=== PATIENT | male | born 1950 | race Caucasian/White ===

== ENCOUNTER 2018-10-26 21:50 | Emergency (ER) | payer MEDICARE, OTHER ==
[~2018-10-26] VITALS: Ht 180.3 cm; Wt 80.3 kg
[~2018-10-26 21:50] MED LIST: AMLODIPINE BESYL5 MG PO; ANTIOXIDANT VI1 EACH PO; BACLOFEN10 MG PO; BACLOFEN20 MG PO; CENTRUM SILVER1 EAC2 PO; CYCLOBENZAPRINE10 MG PO; FUROSEMIDE20 MG PO; LISINOPRIL40 MG PO; METOPROLOL TART50 MG PO; POTASSIUM CHLO10 MEQ PO; REQUIP1 MG PO; SUPER B COMPLE150 MG PO; ULTRAM50 MG PO
== END 2018-10-26 23:20 | disposition home or self-care (01) ==
LOC: ED 21:50
PROC: 0HQ1XZZ Repair Face Skin, External Approach (ICD-10-PCS; principal; 2018-10-26)
DX: S01.81XA Laceration without foreign body of other part of head, initial encounter (principal); I10 Essential (primary) hypertension; F17.200 Nicotine dependence, unspecified, uncomplicated; Z90.49 Acquired absence of other specified parts of digestive tract; Z79.899 Other long term (current) drug therapy; Z23 Encounter for immunization; W19.XXXA Unspecified fall, initial encounter; W22.8XXA Striking against or struck by other objects, initial encounter
CPT/HCPCS: 12011; 90471; 90715; 99282-25

== ENCOUNTER 2018-12-17 10:31 | Observation (INO) | payer MEDICARE, OTHER ==
[~2018-12-17] VITALS: Ht 180.3 cm; Wt 76.3 kg
--- OUTSIDE RECORDS SUMMARY | ~2018-12-17 | XMS | Clinical Summary ---
Demographics + + + | Address | [address] | | | [place] [address] | + + + | Home Phone | | + + + | Preferred Language | Unknown | + + + | Marital Status | | + + + | Mu-Ism Affiliation | Unknown | + + + | Race | Unknown | + + + | Ethnic Group | Unknown | + + + Author + + + | Author | [facility] | | | and [place] | + + + | Organization | [facility] | | | and [place] | + + + | Address | Unknown | + + + | Phone | Unavailable | + + + Support + + +---------+ + | Name | Relationship | Address | Phone | + + +---------+ + | Ruel Rubalcava | ECON | Unknown | | + + +---------+ + Care Team Providers + +------+ + | Care Financial Planning Consultant Name | Role | Phone | + +------+ + | Lamberto Altamirano MD | PP | | + +------+ + Allergies No Known Allergies Current Medications + + +-------+---------+------+------+-------+ | Prescription | Sig. | Disp. | Refills | Star | End | Statu | | | | | | t | Date | s | | | | | | Date | | | + + +-------+---------+------+------+-------+ | traMADol (ULTRAM) | | | | 09/1 | | Activ | | 50 mg tablet | | | | 4/20 | | e | | | | | | 12 | | | + + +-------+---------+------+------+-------+ | lisinopril | | | | 09/1 | | Activ | | (PRINIVIL,ZESTRIL) | | | | 4/20 | | e | | 40 MG tablet | | | | 12 | | | + + +-------+---------+------+------+-------+ | baclofen | | | | 09/1 | | Activ | | (LIORESAL) 20 mg | | | | 4/20 | | e | | tablet | | | | 12 | | | + + +-------+---------+------+------+-------+ | rOPINIRole | | | | 09/1 | | Activ | | (REQUIP) 1 mg tablet | | | | 4/20 | | e | | | | | | 12 | | | + + +-------+---------+------+------+-------+ | furosemide (LASIX) | | | | 09/1 | | Activ | | 20 mg tablet | | | | 4/20 | | e | | | | | | 12 | | | + + +-------+---------+------+------+-------+ | cyclobenzaprine | | | | 09/1 | | Activ | | (FLEXERIL) 10 mg | | | | 4/20 | | e | | tablet | | | | 12 | | | + + +-------+---------+------+------+-------+ | B Complex-C (SUPER | | | | 09/1 | | Activ | | B COMPLEX) TABS | | | | 4/20 | | e | | | | | | 12 | | | + + +-------+---------+------+------+-------+ | multivitamin | | | | 09/1 | | Activ | | (THERAGRAN) per | | | | 4/20 | | e | | tablet | | | | 12 | | | + + +-------+---------+------+------+-------+ | amLODIPine | Take 5 mg by mouth | | | | | Activ | | (NORVASC) 5 mg | Daily. | | | | | e | | tablet | | | | | | | + + +-------+---------+------+------+-------+ | metoprolol | Take 100 mg by mouth | | | | | Activ | | succinate | Daily. | | | | | e | | (TOPROL-XL) 100 mg | | | | | | | | ER tablet | | | | | | | + + +-------+---------+------+------+-------+ | potassium chloride | Take 10 mEq by mouth | | | | | Activ | | (KARI ZHONG) 10 | Daily. | | | | | e | | MEQ ER tablet | | | | | | | + + +-------+---------+------+------+-------+ Active Problems + + + | Problem | Noted Date | + + + | S/P cervical spinal fusion | 11/12/2015 | + + + | Cervical cord myelomalacia (HCC) | 11/12/2015 | + + + | Cervical spondylosis | 11/12/2015 | + + + | Cervical kyphosis | 11/12/2015 | + + + | Spasticity | 11/12/2015 | + + + | SPINAL STENOSIS | | + + + Family History + + +------+ + | Medical History | Relation | Name | Comments | + + +------+ + | Arthritis | Brother | | BACK | + + +------+ + | Sleep Apnea | Brother | | | + + +------+ + | Heart attack | Father | | | + + +------+ + | Sleep Apnea | Father | | | + + +------+ + | Glaucoma | Mother | | | + + +------+ + | Hypertension | Mother | | | + + +------+ + | Low Back Pain | Mother | | DJD | + + +------+ + | Other (see comment) | Mother | | SHINGLES | + + +------+ + | Ovarian cancer | Sister | | | + + +------+ + + +------+ + + | Relation | Name | Status | Comments | + +------+ + + | Brother | | Alive | | + +------+ + + | Brother | | | | + +------+ + + | Child | | Alive | | + +------+ + + | Father | | | | | | | (Age | | | | | 67) | | + +------+ + + | Mother | | Alive | | + +------+ + + | Sister | | Alive | | + +------+ + + | Sister | | | | + +------+ + + Social History + + + +--------+ + | Tobacco Use | Types | Packs/Day | Years | Date | | | | | Used | | + + + +--------+ + | Current Every Day | Cigarettes | 0.25 | 36 | Started: 11/12/1942 | | Smoker | | | | | + + + +--------+ + + +---+---+---+ | Smokeless Tobacco: | | | | | Never Used | | | | + +---+---+---+ + + +---------+ + | Alcohol Use | Drinks/We | oz/Week | Comments | | | ek | | | + + +---------+ + | Yes | 0 | 0.0 | Couple of drinks per week | | | Standard | | | | | drinks or | | | | | | | | | | equivalen | | | | | t | | | + + +---------+ + + + + | Sex Assigned at | Date Recorded | | | | + + + | Not on file | | + + + Last Filed Vital Signs + + + + | Vital Sign | Reading | Time Taken | + + + + | Blood Pressure | 139/97 | 11/12/2015945 PST | + + + + | Pulse | 69 | 11/12/2015945 PST | + + + + | Temperature | - | - | + + + + | Respiratory Rate | 18 | 11/12/2015945 PST | + + + + | Oxygen Saturation | - | - | + + + + | Inhaled Oxygen | - | - | | Concentration | | | + + + + | Weight | 91.6 kg (202 lb) | 11/12/2015945 PST | + + + + | Height | 180.3 cm (5' 11") | 11/12/2015945 PST | + + + + | Body Mass Index | 28.17 | 11/12/2015 0946 PST | + + + + Plan of Treatment + + + + + | Health Maintenance | Due Date | Last Done | Comments | + + + + + | Vaccine: | | | | | Dtap/Tdap/Td (1 - | 8 | | | | Tdap) | | | | + + + + + | Vaccine: Zoster (1 | | | | | of 2) | 9 | | | + + + + + | Vaccine: | | | | | Pneumococcal 65+ | 4 | | | | Low/Medium Risk (1 | | | | | of 2 - PCV13) | | | | + + + + + | Vaccine: Influenza | | | | | (#1) | 8 | | | + + + + + Results Not on filefrom Last 3 Months Insurance + +--------+ +--------+ + + | Payer | Benefi | Subscriber | Type | Phone | Address | | | t Plan | ID | | | | | | / | | | | | | | Group | | | | | + +--------+ +--------+ + + | MEDICARE | MEDICA | [id number] | Medica | [phone] | | | | RE | | re | [phone] | | | | PART A | | | | | | | AND B | | | | | + +--------+ +--------+ + + | MODA | MODA | [id number] | Indemn | [phone] | [address] [address] | | | HEALTH | | ity | [address] | [place] [address] | | | MDCR | | | | | | | SUPPL | | | | | + +--------+ +--------+ + + + +--------+ +--------+ + + | Guarantor Name | Accoun | Relation to | Date | Phone | Billing Address | | | t Type | Patient | of | | | | | | | | | | + +--------+ +--------+ + + | CHENTE RUBALCAVA | Person | Self | [birth year] Home: | [address] | | | al/Fam | | 1951 | [phone] | [place] | | | iron | | | [phone] | + +--------+ +--------+ + +
--- OUTSIDE RECORDS SUMMARY | ~2018-12-17 | XMS | Clinical Summary ---
Demographics + + + | Address | [address] | | | [place] [address] | + + + | Home Phone | | + + + | Preferred Language | Unknown | + + + | Marital Status | Single | + + + | Gnosticist Affiliation | Unknown | + + + | Race | Unknown | + + + | Ethnic Group | Other Race | + + + Author + + + | Author | [facility] | + + + | Organization | [facility] | + + + | Address | Unknown | + + + | Phone | Unavailable | + + + Care Team Providers + +------+ + | Care Machine Sprayer Name | Role | Phone | + +------+ + PP | Unavailable | + +------+ + Source Comments RAJANI is fully live on both [facility] and [facility]Patient.[facility]3] Allergies Not on File Current Medications Not on file Active Problems Not on file Social History + +-------+ +--------+------+ | Tobacco Use | Types | Packs/Day | Years | Date | | | | | Used | | + +-------+ +--------+------+ | Never Assessed | | | | | + +-------+ +--------+------+ + + + | Sex Assigned at | Date Recorded | | | | + + + | Not on file | | + + + Plan of Treatment + + + + + | Health Maintenance | Due Date | Last Done | Comments | + + + + + | Pneumococcal (Adult) | | | | | (1 of 2 - PCV13) | 4 | | | + + + + + | Influenza (Flu) | | | | | vaccination (#1) | 8 | | | + [...] + + | MEDICARE | MEDICA | xxxxxxxxxx | Medica | [phone]- | [address] | | | RE A & | | re | [phone] | [place] [address] | | | B | | | | | + +--------+ +--------+ + + | MODA MEDICARE | MODA | xxxxxxxxx | POS | +- | [address] [address] | | SUPPLEMENT | MEDICA | | | [phone] | [place] [address] | | | RE | | | | | | | SUPPLE | | | | | | | MENT | | | | | + +--------+ [...] Self | [birth year] | Home: | [address] | | | al/Fam | | 1951 | [phone] | [place] [address] | | | iron | | | [phone] | | + +--------+ +--------+ + +"
--- OUTSIDE RECORDS SUMMARY | ~2018-12-17 | XMS | Clinical Summary ---
Demographics + + + | Address | [address] | | | [place] [address] | + + + | Home Phone | | + + + | Preferred Language | Unknown | + + + | Marital Status | | + + + | Episcopalian Affiliation | Unknown | + + + | Race | Unknown | + + + | Ethnic Group | Unknown | + + + Author + + + | Author | [facility] | | | and [place] | + + + | Organization | [facility] | | | and [place] | [...] Team Providers + +------+ + | Care Fleecer Name | Role | Phone | + [...] + + | MEDICARE | MEDICA | [id number] | Medica | [phone] | | | | RE | | re | [phone] | | | | PART A | | | | | | | AND B | | | | | + +--------+ +--------+ + + | MODA | MODA | [id number] | Indemn | [phone] | [address] [address] | | | HEALTH | | ity | [phone] | [place] [address] | | | MDCR | | | [...] Self | [birth year] | Home: | [address] | | | al/Fam | | 1951 | [phone] | [place] | | | iron | | | [phone] | + +--------+ +--------+ + +
--- OUTSIDE RECORDS SUMMARY | ~2018-12-17 | XMS | Clinical Summary ---
Demographics + + + | Address | [address] | | | [place] [address] | + + + | Home Phone | | + + + | Preferred Language | Unknown | + + + | Marital Status | | + + + | Pentecostal Affiliation | Unknown | + + + | Race | Unknown | + + + | Ethnic Group | Unknown | + + + Author + + + | Author | [facility] | | | and [place] | + + + | Organization | [facility] | | | and [place] | [...] Team Providers + +------+ + | Care Applications Systems Analyst Name | Role | Phone | + [...] + + | MEDICARE | MEDICA | [id number] | Medica | [phone] | | | | RE | | re | [phone] | | | | PART A | | | | | | | AND B | | | | | + +--------+ +--------+ + + | MODA | MODA | [id number] | Indemn | [phone] | [address] [address] | | | HEALTH | | ity | [phone] | [place] [address] | | | MDCR | | | [...] Self | [birth year] | Home: | [address] | | | al/Fam | | 1951 | [phone] | [place] | | | iron | | | [phone] | + +--------+ +--------+ + +
--- OUTSIDE RECORDS SUMMARY | ~2018-12-17 | XMS | Clinical Summary ---
Demographics + + + | Address | [address] | | | [place] [address] | + + + | Home Phone | | + + + | Preferred Language | Unknown | + + + | Marital Status | Single | + + + | Presybeterian Affiliation | Unknown | + + + | Race | Unknown | + + + | Ethnic Group | Other Race | + + + Author + + + | Author | [facility] | + + + | Organization | [facility] | + + + | Address | Unknown | + + + | Phone | Unavailable | + + + Care Team Providers + +------+ + | Care Strategic Planning Consultant Name | Role | Phone | + +------+ + PP | Unavailable | + +------+ + Source Comments RAJANI is fully live on both [facility] and [facility]Patient.[facility] Allergies Not on File Current Medications Not [...] | re | [address] | [place] [address] | | | B | | | | | + +--------+ +--------+ + + | MODA MEDICARE | MODA | xxxxxxxxx | POS | +- | [address] [address] | | SUPPLEMENT | MEDICA | | | [phone] | [place] [address] | | | RE | | | [...] | 1951 | [phone] | [place] [address] | | | iron | | | [phone] | | + +--------+ +--------+ + +"
--- OUTSIDE RECORDS SUMMARY | ~2018-12-17 | XMS | Clinical Summary ---
Demographics + + + | Address | [address] | | | [place] [address] | + + + | Home Phone | | + + + | Preferred Language | Unknown | + + + | Marital Status | Single | + + + | Roman Catholic Affiliation | Unknown | + + + | Race | Unknown | + + + | Ethnic Group | Other Race | + + + Author + + + | Author | [facility] | + + + | Organization | [facility] | + + + | Address | Unknown | + + + | Phone | Unavailable | + + + Care Team Providers + +------+ + | Care Copper Tapper Name | Role | Phone | + +------+ + PP | Unavailable | + +------+ + Source Comments RAJANI is fully live on both [facility] and [facility] InPatient.[facility] Allergies Not on File Current Medications Not [...] | re | [address] | [place] [address] | | | B | | | | | + +--------+ +--------+ + + | MODA MEDICARE | MODA | xxxxxxxxx | POS | +- | [address] [address] | | SUPPLEMENT | MEDICA | | | [phone] | [place] [address] | | | RE | | | [...] | 1951 | [phone] | [place] [address] | | | iron | | | [phone] | | + +--------+ +--------+ + +"
[2018-12-17] MEDS ORDERED: FINASTERIDE5 MG PO (10:59)
[2018-12-17] MEDS ORDERED: DULOXETINE HCL20 MG PO (10:59)
[2018-12-17] MEDS ORDERED: TAMSULOSIN HCL0.4 MG PO (10:59)
--- NOTE | 2018-12-17 13:01 | NUR ---
PATIENT ADMITTED, IVF ON STRAIGHT TUBING. PATIENT VOIDED 200ML URINE. SURGICAL [place] DEFERRED. PATIENT DENIES PAIN, IS NPO. SURGICAL CONSENT AND PAPERS IN CHART.
--- NOTE | 2018-12-17 13:47 | NUR ---
PT OFF FLOOR TO OR. SPOUSE WILL STEP OUT FOR A FEW MINUTES OF FRESH AIR AND THEN COME BACK TO THE ROOM TO SPEAK WITH DR POLK.
--- NOTE | 2018-12-17 15:34 | NUR ---
12/17/18 1534 Micaela Dennis 1517 PT ARRIVED TO PACU, MANAGER PRINTING AT BEDSIDE. PT AWAKE. DENIES PAIN AND NAUSEA. EAR PULSE OX APPLIED. PT RESTING COMFORTABLY. 1520 O2 DECREASED TO 6L VIA MASK. PT TOLERATING WELL. 1530 PT REMAINS AWAKE AND DOING WELL. DENIES PAIN AND NAUSEA. 02 TO PT RESTING.
[2018-12-17] MEDS ORDERED: METOPROLOL SUC100 MG PO (15:43)
--- NOTE | 2018-12-17 16:00 | NUR ---
PT ARRIVED FROM PACU, PT ABLE TO SELF TRANSFER TO BED. WOUNDS COVERED WITH SILVERDENE, MEPLIX, AND OPSITE. NO DRAINAGE NOTED. PT ABLE TO TOLERATE WATER AND JELLO. PT VOIDING SMALL AMOUNTS IN URINAL INDEPENDENTLY. CHEST X-RAY TO DETERMINE RIB INJURY. MEDS GIVEN PER DR POLK ORDER. IVF INFUSING PER ORDER. FAMILY AT BEDSIDE.
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
--- NOTE | 2018-12-17 19:00 | NUR ---
SHIFT REPORT RECEIVED. PATIENT RESTING IN BED. DENIES PAIN. APPEARS COMFORTABLE. SON IN ROOM. IV FLUIDS PER ORDER, SITE WNL. PATIENT DEMONSTRATED HOW TO USE CALL LIGHT AND AGREES TO NOT GET OUT OF BED WITHOUT CALLING. WOUND DRESSINGS VISUALIZED, CDI.
--- NOTE | 2018-12-17 21:00 | NUR ---
PATIENT PROVIDED WITH SCHEDULED MEDS. PATIENT DENIES PAIN, BUT DESCRIBES PAIN IN HIS HEAD, CHEST/RIBS, AND LEGS. DISCUSSED PAIN SCALE WITH PATIENT, HE REPORTS 4/10 OVERALL. PRN NORCO PROVIDED. PATIENT IS AAOX4. CIWA SCORE 4. LUNGS ARE DIM, BREATHING SHALLOW. ENCOURAGED COUGH AND DEEP BREATH. EATING DISORDER SPECIALIST COMPLETED VS, PATIENT'S TEMP MILDLY ELEVATED. ENCOURAGED PATIENT TO AMBUALTE, WHICH HE AGREES TO AFTER PAIN MEDICATION HAS CHANCE TO TAKE EFFECTS. IV FLUIDS PER ORDER, SITE WNL. DRESSING ON LEFT LEG CDI, NO DRAINAGE NOTED. SAME WITH DRESSING ON RIGHT INNER KNEE. PATIENT'S EYES ARE COVERED IN DRIED BLOOD AND EYE DRAINAGE. WARM WASH CLOTH APPLIED TO LOOSES DRAINAGE AND AREAS CLEANED. ABRASION ON RIGHT BROW CLEANED AND BACITRACIN APPLIED. PROVIDED PATIENT WITH A SODA PER REQUEST. ALLOWED TO REST. CALL LIGHT IN REACH.
--- NOTE | 2018-12-17 22:10 | NUR ---
PATIENT UP TO AMBULATE IN HALLWAY. PATIENT AMBULATED WELL WITH FWW. REPORTS FEELING WEAK AND WALKS WITH AN IMPARIED GAIT AT BASELINE. HE USES A CANE AT HOME. PATIENT MADE ONE LARGE LAP AND RETURNED TO HIS ROOM. LEGS ELEVATED ON PILLOWS TO REDUCE EDEMA. HOB ELEVATED. PATIENT'S TEMP RE-CHECKED. WNL AT THIS TIME. PATIENT DENIES FURTHER NEEDS. CALL LIGHT IN REACH.
--- NOTE | 2018-12-17 23:45 | NUR ---
PATIENT APPEARS TO BE SLEEPING SOUNDLY. RR 18. CALL LIGHT IN REACH.
--- NOTE | 2018-12-18 02:15 | NUR ---
PATIENT UP FOR SET AND EXHIBIT DESIGNER TO COMPLETE VS. PATIENT DENIES PAIN. CMS INTACT. DRESSING CDI, NO DRAINAGE NOTED. IV FLUIDS PER ORDER, SITE WNL.
--- NOTE | 2018-12-18 04:30 | NUR ---
PATIENT RESTING IN BED. APPEARS TO BE SLEEPING. RR 18. CALL LIGHT IN REACH. IV FLUIDS PER ORDER, SITE WNL.
--- NOTE | 2018-12-18 06:34 | NUR ---
PATIENT RESTED WELL THIS SHIFT. MINIMAL PAIN. PRN NORCO X1. DRESSING ON RIGHT INNER KNEE AND LEFT LEG CDI, MEPILEX AND OBSITE. ABRASION ON RIGHT EYE CLEANED AND BACITRACIN APPLIED. PATIENT VS STABLE. IV FLUIDS PER ORDER. URINE OUTPUT QS. SBA W/FWW, AMBULATED IN HALLWAY X1. CIWA DONE WITH ASSESSMENTS, CONSISTENT SCORE OF 4.
--- NOTE | 2018-12-18 06:56 | NUR ---
PATIENT RESTING IN BED. DENIES PAIN. STATES "THERE IS A STING WHEN I MOVE SOMETIMES" REFURING TO THE LEFT LEG. INSTRUCTED PATIENT ON USING HIS IS, PATIENT DID WELL. DENIES FURTHER NEEDS. CALL LIGHT IN REACH.
--- NOTE | 2018-12-18 07:36 | NUR ---
RECIEVED BEDSIDE REPORT FROM HADLEY JAMISON. PT AWAKE AND ALERT, UP TO CHAIR FOR BREAKFAST. CIWA SCORE OF 4, TREMORS, SWEATING, AND HEADACHE. IVF INFUSING. NO DRAINAGE ON DRESSINGS. UP AMBULATING IN HALLS. NORCO X1 PRIOR TO AMBULATION.
--- NOTE | 2018-12-18 08:46 | NUR ---
PT SITTING UP IN CHAIR. PT HAS NO NEEDS AT THIS TIME. CALL LIGHT WITHIN REACH.
--- NOTE | 2018-12-18 09:00 | NUR ---
SPOKE WITH PATIENT IN ROOM. PATIENT LIVES ALONE. STATES HE FEELS SAFE TO GO HOME. HAS BEEN UP IN ROOM AND FEELS HE CAN AMBULATE SAFELY AT HOME, TOO. PATIENT STATES UNDERSTANDING DR POLK IS ORDERING OUTPATIENT WOUND CARE, HE STATES HE CAN DRIVE SELF TO THIS, AND HIS BROTHER AND SISTER ARE COMING TO STAY AND THEY CAN TAKE HIM IN THE BEGINNING. DISCUSSED THAT PATIENT SHOULD BE SURE TO UNDERSTAND ALL DISCHARGE SUCH DIAGNOSIS, MEDICATIONS(AND SIDE EFFECTS), FOLLOW UP APPOINTMENTS AND WHO TO CALL IF HE HAS COMPLICATIONS AT HOME. PATIENT STATES UNDERSTANDING AND UNDERSTANDS HE WILL BE GETTING THIS INFORMATION FROM NURSES, PHARMACIST AND THAT HE CAN ALSO CALL DR REIS OFFICE OR DR HINOJOSA AFTER DISCHARGE. ALL QUESTIONS ANSWERED.
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
--- NOTE | 2018-12-18 09:21 | HP ---
[facility] [address] [place], [place] [address] Signed ADMISSION DATE: 12/17/2018 REASON FOR ADMISSION: Four-day old thermal burn of left upper leg and right knee area. HISTORY: This 68-year-old white man is well known to me from the past. Last having undergone colonoscopy in 2013. He is known to have long established chronic alcoholism and chronic smoking. He said that four days ago, he was moving in his kitchen area and slipped and fell and opened the door of the oven. This caused him to fall and hit his head on the right side, sustaining contusions of his orbits as well as a small laceration in his right medial orbit. Emergency medical personnel were called to his home, who assisted him in getting back on his feet and minimal apparent local wound care. He presented to the emergency room where he was thoroughly evaluated by Dr. Zhao noting his injuries and thermal burn, which was apparently not appreciated at the initial EMS evaluation previously. He was said to have had his pants on and only later appreciated that he had been burned. I suspect he was highly intoxicated at the time of the incident. He is now accompanied by his sister, who lives in [place], who is assisting him. He denies any fever, chills, or any other similar such problem. Evaluation by Dr. Zhao was undertaken, attending to the laceration his right medial orbit, which is planned to heal by secondary intention, ointment has been applied and cleansing of the wound has been undertaken. In the left thigh area, notable large irregulargeographic appearing thermal burn with eschar and some skin noted. In the medial right knee are much smaller, but similar such findings. Initial recommendation was for application of Silvadene and follow up in the office that I preferred to see him in the ER myself initially. SOCIAL HISTORY: Does include chronic alcoholism as well as smoking history. He is now . He is accompanied by his sister, who lives in [place] most of the time. He is a retired state postal delivery officer. His son lives in the [facility]. Electronically Signed By: CHERYL POLK MD 12/18/18 0921 PATIENT NAME: CHENTE RUBALCAVA HISTORY AND PHYSICAL DATE OF : 46 REPORT #: [id number] PHYSICIAN: CHERYL POLK MD PCP: GEOVANNI HINOJOSA MD REPORT IS CONFIDENTIAL AND NOT TO BE RELEASED WITHOUT AUTHORIZATION [facility] [address] [place], [place] [address] Signed REVIEW OF SYSTEMS: He denies any shortness of breath or chest pain. He has no headache. No nausea or vomiting. Denies any fever or chills. PHYSICAL EXAMINATION: GENERAL: This is a disheveled white man, who looks somewhat pitiable in his overall appearance. He has bilateral ecchymosis of the orbits, but not raccoon eyes per se. There is a laceration in the medial right orbit near the eyebrow that has ointment on it. His trachea is midline. He is alert and oriented. Does not appear clinically to be intoxicated at this time. CHEST: Shows normal respiratory excursion without tachypnea. HEART: Regular. ABDOMEN: Soft and nontender. EXTREMITIES: Show several areas of eschar and leathery type wounds, particularly over the knee. There is mild erythema at the margins of the wounds, but no significant cellulitis per se. The right medial knee area are similar such findings with eschar noted. There is no sign of peripheral edema. LABORATORY DATA: There have been no labs obtained at this time and they are being drawn. ASSESSMENT: The patient has delayed presentation of thermal burn related to a fall on a hot object (oven door). The devitalized tissue of the left leg as well as the right medial knee area would be best operatively debrided. Application of Silvadene following that would be appropriate. He has an indeterminate level of thermal injury, probably a deep partial-thickness type burn rather than full thickness, though this is uncertain particularly around the left knee. Whether or not skin grafting will be necessary remains to be determined, I suspect not. I would recommend and he has accepted, as has his sister, operative debridement with application of Silvadene and local wound care. I suspect a complete and nearly complete healing would be expected in two weeks or so. If other areas declare themselves or should he get secondary infection with progression of tissue injury, then skin grafting may ultimately be required. He agrees with this. He last ate at approximately 8:00 in the morning, a bowl of cereal. He will remain n.p.o. And IV will be started. We will give prophylactic antibiotics and likely he will need a tetanus booster as well. Electronically Signed By: CHERYL POLK MD 12/18/18 0921 PATIENT NAME: CHENTE RUBALCAVA HISTORY AND PHYSICAL DATE OF : 46 REPORT #: [id number] PHYSICIAN: CHERYL POLK MD PCP: GEOVANNI HINOJOSA MD REPORT IS CONFIDENTIAL AND NOT TO BE RELEASED WITHOUT AUTHORIZATION [facility] [address] [address] Signed MD WILLOW Moreno/MODL /[id number] cc: Lamberto Zhao MD Copies: LAMBERTO ZHAO MD ~ Electronically Signed By: CHERYL POLK MD 12/18/18 0921 PATIENT NAME: CHENTE RUBALCAVA HISTORY AND PHYSICAL DATE OF : 46 REPORT #: [id number] PHYSICIAN: CHERYL POLK MD PCP: GEOVANNI HINOJOSA MD REPORT IS CONFIDENTIAL AND NOT TO BE RELEASED WITHOUT AUTHORIZATION
[2018-12-18] MEDS ORDERED: MAPAP325 MG PO (09:36)
--- NOTE | 2018-12-18 11:10 | NUR ---
PT DISCHARGE TEACHING COMPLETE. VERBAL INSTRUCTIONS GIVEN, DISCUSSED LIMITING ALCOHOL AND TOBACCO USE, HOME SAFETY, FOLLOW UP. PT AND HIS SISTER VERBALIZED UNDERSTANDING OF DISCHARGE INSTRUCTIONS. PT IV REMOVED. PT FUNCTION AT BASELINE. PT TAKEN OUT OF FACILITY IN WHEELCHAIR.
== END 2018-12-18 11:00 | disposition home or self-care (01) ==
LOC: ED 10:31 → MS 10:32
PROVIDERS: ADMIT Surgery
PROC: 0HBJXZZ Excision of Left Upper Leg Skin, External Approach (ICD-10-PCS; 2018-12-17)
PROC: 0HBKXZZ Excision of Right Lower Leg Skin, External Approach (ICD-10-PCS; 2018-12-17)
PROC: 0HBLXZZ Excision of Left Lower Leg Skin, External Approach (ICD-10-PCS; principal; 2018-12-17 14:00)
DX: T24.092A Burn of unspecified degree of multiple sites of left lower limb, except ankle and foot, initial encounter (principal); T24.021A Burn of unspecified degree of right knee, initial encounter; I10 Essential (primary) hypertension; T31.0 Burns involving less than 10% of body surface; F17.200 Nicotine dependence, unspecified, uncomplicated; F10.20 Alcohol dependence, uncomplicated; X19.XXXA Contact with other heat and hot substances, initial encounter; W01.198A Fall on same level from slipping, tripping and stumbling with subsequent striking against other object, initial encounter; Z98.1 Arthrodesis status; Y92.000 Kitchen of unspecified non-institutional (private) residence as the place of occurrence of the external cause
CPT/HCPCS: 00400; 36415; 71045; 80048; 80053; 83735; 85025; 96361; 96374; 99284-25; G0378; J0330; J0690; J1170; J2274; J2370; J2704; J3010; J7040; J7120

== ENCOUNTER 2021-03-20 23:46 | Emergency (ER) | payer MEDICARE, OTHER ==
[~2021-03-20] VITALS: Ht 180.3 cm; Wt 81.7 kg
[~2021-03-20 23:46] MED LIST changes: +ACETAMINOPHEN500 MG PO; +DULOXETINE HCL20 MG PO; +FINASTERIDE5 MG PO; +IBUPROFEN600 MG PO; +MAPAP325 MG PO; +METOPROLOL SUC100 MG PO; +OXYCODON-ACETA1 EAC2 PO; +TAMSULOSIN HCL0.4 MG PO
[2021-03-21] MEDS ORDERED: PREDNISOLONE ACE5 ML OPTH (00:06)
[2021-03-21] MEDS ORDERED: KETOROLAC TROMET5 M1 OPTH (00:06)
[2021-03-21] MEDS ORDERED: OFLOXACIN5 M1 OP (00:07)
== END 2021-03-21 01:53 | disposition home or self-care (01) ==
LOC: ED 23:46
DX: S02.2XXA Fracture of nasal bones, initial encounter for closed fracture (principal); W22.8XXA Striking against or struck by other objects, initial encounter; I10 Essential (primary) hypertension; F17.200 Nicotine dependence, unspecified, uncomplicated; Z79.899 Other long term (current) drug therapy; Z79.52 Long term (current) use of systemic steroids
CPT/HCPCS: 70160; 99283-25

== ENCOUNTER 2021-04-06 14:27 | Emergency (ER) | payer MEDICARE, OTHER ==
[~2021-04-06] VITALS: Ht 180.3 cm; Wt 81.7 kg
[~2021-04-06 14:27] MED LIST changes: +KETOROLAC TROMET5 M1 OPTH; +OFLOXACIN5 M1 OP; +PREDNISOLONE ACE5 ML OPTH
--- OUTSIDE RECORDS SUMMARY | 2021-04-06 14:38 | XMS ---
PreManage Notification: CHENTE RUBALCAVA Security [employer] Events No recent Security Events currently on file CRITERIA MET - [facility] - 2 Visits in 30 Days CARE PROVIDERS There are no care providers on record at this time. Amari has no Care Guidelines for this patient. [place] [facility] MO.) [facility] NOTE: Visits indicate total known visits. ED/C VISIT TRACKING (12 MO.) [facility] COMPLAINT: - FALL 03/20/2021 23:[address] [facility] [place] TYPE: Emergency COMPLAINT: - GLF DIAGNOSES: - Nicotine dependence, unspecified, uncomplicated - Other termite treater (current) drug therapy - termite treater (current) use of systemic steroids - Fracture of nasal bones, initial encounter for closed fracture - Essential (primary) hypertension - Striking against or struck by other objects, initial encounter INPATIENT VISIT TRACKING (12 MO.) No inpatient visits to display in this time frame [email or web address]
--- NOTE | 2021-04-08 12:03 | EKG ---
[place] [facility] [address] [facility] [place] [address] Signed Sinus bradycardia Otherwise normal ECG When compared with ECG of 01-MAY-2020 16:24, Criteria for Anteroseptal infarct are no longer present Confirmed by BEE RODRIGES MD ([id number]) on 04/08/2021 12:03:22 PM Electronically Signed By: BEE RODRIGES MD 04/08/21 1203 PATIENT NAME: CHENTE RUBALCAVA VIPUL Electrocardiogram DATE OF : 46 PHYSICIAN: BEE RODRIGES MD REPORT #: [id number] REPORT IS CONFIDENTIAL AND NOT TO BE RELEASED WITHOUT AUTHORIZATION
== END 2021-04-06 21:53 | disposition short-term general hospital (02) ==
LOC: ED 14:27
DX: S72.144A Nondisplaced intertrochanteric fracture of right femur, initial encounter for closed fracture (principal); Z20.822 Contact with and (suspected) exposure to COVID-19; W18.30XA Fall on same level, unspecified, initial encounter; I10 Essential (primary) hypertension; F17.200 Nicotine dependence, unspecified, uncomplicated; Z79.899 Other long term (current) drug therapy; Z79.52 Long term (current) use of systemic steroids
CPT/HCPCS: 71045; 73502; 73700; 80053; 81001; 84484; 85025; 85610; 85730; 93005; 93010; 96374; 96376; 99285-25; C9803; J2270; J7030; U0003